=== PATIENT | male | born 1965 | race Caucasian/White ===

== ENCOUNTER 2023-08-19 07:12 | Emergency (ER) | payer MEDICAID ==
[~2023-08-19] VITALS: Ht 167.6 cm; Wt 82.0 kg
[2023-08-19 07:13] VITALS: TEMP 98.2
[2023-08-19 08:05] VITALS: BP 162/98; PULSE 76; RESP 18; O2SAT 99
[2023-08-19] MEDS: piperacillin/tazo 4.5gm/100ml 100 ML IV ONE (09:12)
[2023-08-19] MEDS ORDERED: DOXY-457 PO (09:32)
== END 2023-08-19 09:59 | disposition home or self-care (01) ==
LOC: ER 07:12
DX: L02.415 Cutaneous abscess of right lower limb (principal); L03.115 Cellulitis of right lower limb; Z79.2 Long term (current) use of antibiotics
CPT/HCPCS: 93971; 99284

== ENCOUNTER 2024-08-02 15:22 | Emergency (ER) | payer MEDICAID ==
[~2024-08-02] VITALS: Ht 170.2 cm; Wt 84.8 kg
[2024-08-02 15:37] VITALS: BP 136/87
[2024-08-02] MEDS: ketorolac trometh 15mg/ml vial 15 MG/ML ML IM ONE (17:28)
[2024-08-02 18:32] VITALS: PULSE 82; RESP 16; TEMP 98.7; O2SAT 99
== END 2024-08-02 18:38 | disposition home or self-care (01) ==
LOC: ER 15:23
DX: T88.9XXA Complication of surgical and medical care, unspecified, initial encounter (principal); Y83.9 Surgical procedure, unspecified as the cause of abnormal reaction of the patient, or of later complication, without mention of misadventure at the time of the procedure; Y93.89 Activity, other specified; Y92.89 Other specified places as the place of occurrence of the external cause; Y99.8 Other external cause status
CPT/HCPCS: 73610; 96372; 99283; J1885